=== PATIENT | male | born 1995 | race African-American/Black ===

== ENCOUNTER 2022-05-01 18:44 | Emergency (ER) | payer MEDICAID ==
[~2022-05-01] VITALS: Ht 180.3 cm; Wt 77.5 kg
[2022-05-01] MEDS ORDERED: AMOX500C2 PO (20:08)
[2022-05-01 20:20] VITALS: BP 118/68
== END 2022-05-01 20:24 | disposition home or self-care (01) ==
LOC: ER 18:44
DX: J40 Bronchitis, not specified as acute or chronic (principal); J03.90 Acute tonsillitis, unspecified; F17.210 Nicotine dependence, cigarettes, uncomplicated; Z79.2 Long term (current) use of antibiotics; Z20.822 Contact with and (suspected) exposure to COVID-19
CPT/HCPCS: 36415; 71046; 87426; 87804

== ENCOUNTER 2022-05-29 22:33 | Emergency (ER) | payer MEDICAID ==
[~2022-05-29] VITALS: Ht 180.3 cm; Wt 78.0 kg
[~2022-05-29 22:33] MED LIST: AMOX500C2 PO
[2022-05-30] MEDS ORDERED: AZIT500T66 PO (01:20)
[2022-05-30] MEDS ORDERED: AZITHROMYCIN 250 MG TAB PO ONE (01:30)
[2022-05-30 02:29] VITALS: BP 112/69
== END 2022-05-30 02:50 | disposition home or self-care (01) ==
LOC: ER 22:35
DX: R79.9 Abnormal finding of blood chemistry, unspecified (principal); B96.0 Mycoplasma pneumoniae [M. pneumoniae] as the cause of diseases classified elsewhere; F17.210 Nicotine dependence, cigarettes, uncomplicated; F12.10 Cannabis abuse, uncomplicated; Z88.1 Allergy status to other antibiotic agents

== ENCOUNTER 2022-06-06 08:25 | Emergency (ER) | payer MEDICAID ==
[~2022-06-06] VITALS: Ht 180.3 cm; Wt 78.6 kg
[~2022-06-06 08:25] MED LIST changes: +AZIT500T66 PO
[2022-06-06 09:02] VITALS: BP 124/75
[2022-06-06] MEDS ORDERED: AZIT500T66 PO (09:10)
[2022-06-06] MEDS ORDERED: PROM1SOL4 PO (09:10)
== END 2022-06-06 09:34 | disposition home or self-care (01) ==
LOC: ER 08:25
DX: J20.9 Acute bronchitis, unspecified (principal); F12.10 Cannabis abuse, uncomplicated; F17.210 Nicotine dependence, cigarettes, uncomplicated

== ENCOUNTER 2022-08-11 08:53 | Emergency (ER) | payer MEDICAID ==
[~2022-08-11] VITALS: Ht 180.3 cm; Wt 73.1 kg
[~2022-08-11 08:53] MED LIST changes: +PROM1SOL4 PO
[2022-08-11 09:41] LABS: Urine Bacteria NONE SEEN /hpf (None Seen); Urine Blood Negative /uL (Negative); Urine Mucus FEW (None Seen); Urine Specific Gravity 1.033 (1.001-1.035); Urine WBC 1 /hpf (0 - 3)
[2022-08-11 10:00] VITALS: BP 135/87
[2022-08-11] MEDS ORDERED: ACET1CAP14 PO ×3 (10:11→10:12)
[2022-08-11] MEDS ORDERED: OSEL75CA5 PO ×3 (10:11→10:12)
[2022-08-11] MEDS ORDERED: PROM1SOL4 PO (10:13)
== END 2022-08-11 10:17 | disposition home or self-care (01) ==
LOC: ER 08:53
DX: J10.1 Influenza due to other identified influenza virus with other respiratory manifestations (principal); F17.210 Nicotine dependence, cigarettes, uncomplicated; Z79.2 Long term (current) use of antibiotics; Z79.899 Other long term (current) drug therapy; Z20.822 Contact with and (suspected) exposure to COVID-19
CPT/HCPCS: 36415; 81001; 87426; 87804